=== PATIENT | male | born 1960 | race Caucasian/White ===

== ENCOUNTER 2016-12-13 06:59 | Day surgery (SDC) | payer OTHER ==
[~2016-12-13] VITALS: Ht 185.4 cm; Wt 65.9 kg
[~2016-12-13 06:59] MED LIST: CILOXAN 0.1 APPLICAT BOTH EYES; COGENTIN0.5 MG PO; COGENTIN1 MG PO; FLONASE16 G1 BOTH NARES; INVEGA9 M1 PO; NAPROSYN375 MG PO; NAPROSYN500 MG PO; PALIPERIDONE ER3 MG PO; TIMOPTIC-0100 DROP/1 RIGHT EYE
[2016-12-13 07:35] VITALS: BP 114/63
[2016-12-13 11:56] VITALS: BP 120/69
[2016-12-13 12:42] VITALS: BP 108/69
== END 2016-12-13 12:40 | disposition home or self-care (01) ==
LOC: SDC 06:59
DX: H33.42 Traction detachment of retina, left eye (principal); F41.9 Anxiety disorder, unspecified; F25.9 Schizoaffective disorder, unspecified; Z59.0 Homelessness; F17.210 Nicotine dependence, cigarettes, uncomplicated
CPT/HCPCS: J0690; J1100; J1120; J2795; J3300